=== PATIENT | male | born 1965 | race Caucasian/White ===

== ENCOUNTER → 2020-09-30 08:22 | Outpatient (CLI) | payer OTHER, MEDICARE, SELFPAY ==
[2020-09-30 08:54] LABS: D-Dimer Quantitative (DVT/PE) 0.28 FEU/ug/m (0.27-0.49)
== END ==
PROVIDERS: PCP Family Medicine
DX: R07.9 Chest pain, unspecified (principal); R42 Dizziness and giddiness
CPT/HCPCS: 85379